=== PATIENT | male | born 1965 | race Caucasian/White ===

== ENCOUNTER 2018-12-01 21:32 | Observation (INO) | payer MEDICAID ==
--- NOTE | ~2018-12-01 | HEMODYNAMI ---
PATIENT:MADELEINE MADISON MEDICAL RECORD: [id number] : 61 LOCATION:[facility] D.2121 ADMISSION DATE: 12/01/18 Generatedon:12/02/201810:47 Patient name: MADELEINE MADISON Patient #: [id number] SSN: : 1965 Date of study: 12/02/2018 Page: Of Hemodynamic Procedure Report Patient Data Patient Demographics Procedure consent was obtained First Name: MADELEINE Gender: Male Last Name: LOS : 1965 Patient #: [id number] Age: 53 year(s) Race: Unknown Additional ID: [id number] Contact details Address: [address] [place] [address] State: [place] City: [place] Zip code: [address] Past Medical History Allergies Allergen Reaction Date Comments Reported Other allergy 12/02/2018 DILAUDID Admission Admission Data Admission Date: 12/01/2018 Admission Time: 23:04 Room #: D.2121 Height (in.): 70 BSA: 2.23 (m2) Height (cm.): 177.8 BMI: 33.53 (kg/m2) Weight (lbs.): 233.69 Weight (kg.): 106 Lab Results Lab Result Date: 12/02/2018 Lab Result Time: 0:00 Biochemistry Name Units Result Min Max BUN mg/dl 20 --(----)*- 7 18 Creatinine mg/dl 1.1 --(--*-)-- 0.6 1.3 CBC Name Units Result Min Max Hematocrit % 41 -*(----)-- 42 54 Hemoglobin g/dl 14.4 --(*---)-- 13.5 17.5 Procedure Procedure Types Cath Procedure Diagnostic Procedure [facility] w/Coron[facility] Procedure Description Procedure Date Procedure Date: 12/02/2018 Procedure Start Time: 10:38 Procedure End Time: 10:44 Procedure Staff Name Function Brendan Swain MD Performing Physician Chucky Fernández RT Monitor Yung Harris RN Nurse Sera Parker RT Scrub Procedure Data Cath Procedure Fluoroscopy Diagnostic fluoroscopy Total fluoroscopy Time: 1.6 time: 1.6 min min Diagnostic fluoroscopy Total fluoroscopy dose: 414 dose: 414 mGy mGy Contrast Material Contrast Material Type Amount (ml) Isovue 370 38 Entry Location Entry Primary Successful Side Size Upsize Upsize Entry Closure Pugh ccessful Closure Location (Fr) 1 (Fr) 2 (Fr) Remarks Device Remarks Radial Right 6 Fr Mechanical artery Short Compression Estimated blood loss: 10 ml Diagnostic catheters Device Type Used For End Catheter Placement DIAGNOSTIC [place] 110cm 5 Procedure Fr catheter ([id number]) Procedure Complications No complications Procedure Medications Medication Administration Route Dosage Oxygen etCO2 Nasal cannula 2 l/min Lidocaine 2% added to field 20 Heparin Flush Bag added to field 2 bags (1000units/500ml NS) 0.9% NaCl I.V. 100 ml/hr Radial Cocktail I.A. 1 syringe (Verapamil 2mg/Nitro 400mcg/Heparin 1500units) Versed I.V. 1 mg Fentanyl I.V. 50 mcg Versed I.V. 1 mg Fentanyl I.V. 50 mcg Hemodynamics Rest BSA: 2.23 (m2) HGB: 14.4 (g/dl) O2 Consumption: Estimated: 254.73 (ml/min) O2 Co nsumption indexed: Estimated:114.23 (ml/min/m) Heart Rate: 59 (bpm) Snapshots Pre Cath Intra NCS Post Cath Vital Signs Time Heart Resp SPO2 etCO2 NIBP (mmHg) Rhythm Pain Sedation Rate (ipm) (%) (mmHg) Status Level (bpm) 10:33:48 58 18 100 35.1 111/68(101) NSR 0 (11) 10(A) , No pain 10:38:02 62 16 97 39.6 114/63(85) NSR 0 (11) 9(A) , No pain 10:42:12 70 12 94 41.1 108/65(89) NSR 0 (11) 9(A) , No pain 10:45:25 59 14 94 40.4 106/71(102) NSR 0 (11) 10(A) , No pain Medications Time Medication Route Dose Verified Delivered Reason Notes Effectiveness by by 10:33:53 Oxygen etCO2 2 l/min Brendan Barragan used for Nasal Tauth MD Harris patient registration rep cannula 10:34:00 Lidocaine 2% added 20ml Brendankeshawn Cardona for local to vial Wiliam Swain MD anesthetic field 10:34:06 Heparin Flush added 2 bags Brendankeshawn Cardona used for Bag to Wiliam Swain MD procedure (1000units/500ml field NS) 10:34:15 0.9% NaCl I.V. 100 Brendan Royalula Per ml/hr Wiliam Harris RN physician 10:36:11 Versed I.V. 1 mg Brendan Buffie for sedation Wiliam Harris RN 10:36:17 Fentanyl I.V. 50 mcg Brendan Buffie for sedation Wiliam Harris RN 10:38:25 Radial Cocktail I.A. 1 Brendan Brendan for (Verapamil syringe Wiliam Swain MD vasodilation 2mg/Nitro 400mcg/Heparin 1500units) 10:39:37 Versed I.V. 1 mg Brendan Buffie for sedation Wiliam Harris RN 10:39:42 Fentanyl I.V. 50 mcg Brendan Pryorie for sedation Wiliam Harris RN Procedure Log Time Note 10:00:50 Chucky Fernández RT(R) sent for patient. Start room use. 10:04:51 Time tracking: Regular hours (M-F 7:00 - 5:00) 10:04:55 Plan of Care:Hemodynamics will remain stable., Cardiac rhythm will remain stable., Comfort level will be maintained., Respiratory function will remain adequate., Patient/ family verbilizes understanding of procedure., Procedure tolerated without complication., Recovers from procedure without complications.. 10:15:10 Signed procedure consent form obtained from patient. 10:19:20 Patient allergic to Other allergyDILAUDID 10:19:52 Lab Result : BUN 20 mg/dl 10:19:52 Lab Result : Creatinine 1.1 mg/dl 10:19:52 Lab Result : Hemoglobin 14.4 g/dl 10:19:52 Lab Result : Hematocrit 41 % 10:20:02 Patient Weight : 233.69 lbs 10:20:07 Patient Height : 70 inches 10:21:08 Patient received from Med II to CCL 1 Alert and oriented. Tansferred to table in Supine position. 10:21:11 Warm blankets applied, and luba hugger turned on for patient comfort. 10:21:12 Correct patient and procedure confirmed by team. 10:21:13 ECG and BP/O2 sat monitors applied to patient. 10:32:43 Vital chart was started 10:32:45 Baseline sample Acquired. 10:32:48 Rhythm: sinus rhythm 10:32:49 Full Disclosure recording started 10:33:02 H&P Date Dictated: 12/02/2018 Within 30 days and on chart.. 10:33:09 Pre-procedure instructions explained to patient. 10:33:11 Pre-op teaching completed and patient verbalized understanding. 10:33:12 Family in patients room. 10:33:14 Patient NPO since Midnight. 10:33:15 Is the patient allergic to Iodine/contrast media? No. 10:33:17 Is patient on blood thinner?Yes 10:33:19 ACC The patient was administered the following blood thiners within the last 24 hours: ACCPlavix 10:33:21 Patient diabetic? Yes. 10:33:24 If diabetic: On Metformin? Yes 10:33:32 If on Metformin: Last Dose? 12/01/2018 10:33:34 Previous problem with sedation/anesthesia? No ? 10:33:35 Snore? Yes 10:33:36 Sleep apnea? Yes 10:33:37 Deviated septum? No 10:33:38 Opens mouth fully? Yes 10:33:39 Sticks out tongue? Yes 10:33:40 Airway obstruction? No ? 10:33:42 Dentures? No ? 10:33:50 Pre procedure: right dorsailis pedis pulse 1+ Palpable, but thready & weak; easily obliterated 10:33:52 Modified Wolf's test Ulnar < 7 seconds 10:33:53 Oxygen 2 l/min etCO2 Nasal cannula was administered by Yung Harris RN; used for procedure; 10:33:54 Patient pain scale 0/10 ?. 10:34:00 Lidocaine 2% 20ml vial added to field was administered by Brendan Swain MD; for local anesthetic; 10:34:06 Heparin Flush Bag (1000units/500ml NS) 2 bags added to field was administered by Brendan Swain MD; used for procedure; 10:34:06 IV patent on arrival in right antecubital with 0.9% [facility] at [facility]. 10:34:08 Lab results completed and on chart. 10:34:10 Right Radial & Right Groin area was prepped with chlora-prep and draped in sterile fashion 10:34:11 Alarms reviewed by R. N. 10:34:12 Sharps counted by scrub and verified by R.N. 10:34:15 0.9% NaCl 100 ml/hr I.V. was administered by Yung Harris RN; Per physician; 10:34:15 Use device set Radial Dx or PCI 10:34:17 Tegaderm 4 x 4 (1626W) opened to sterile field. 10:34:17 ACIST Manifold (94367) opened to sterile field. 10:34:18 ACIST Hand Control (45766) opened to sterile field. 10:34:19 ACIST Syringe (59538) opened to sterile field. 10:34:19 Medline Cath Pack ([id number]) opened to sterile field. 10:34:20 Bag Decanter (2002S) opened to sterile field. 10:34:20 DIAGNOSTIC WIRE .035 260cm J wire (293577) opened to sterile field. 10:34:21 MBrace Wrist Support (985823916) opened to sterile field. 10:34:22 SHEATH 6FR Slender (78-1522) opened to sterile field. 10:34:29 IV Extension Set opened to sterile field. 10:35:32 --------ALL STOP TIME OUT------ 10:35:33 Final Timeout: patient, procedure, and site verified with staff and physician. All members of the team are in agreement. 10:35:35 Right Radial & Right Groin site verified by team. 10:35:38 Maximum allowable Isovue 370 dose 300ml. Physician notified. (300ml for normal creatinines. For patients with creatinine of 1.7 or higher multiply weight(kg) x 5 divided by creatinine.) 10:35:43 Fire Safety Assessment: A--An alcohol-based skin anteseptic being used preoperatively., C--Open oxygen or nitrous oxide is being used., D--An ESU, laser, or fiber-optic light is being used. 10:35:48 Physical assessment completed. ASA score P 2 - A patient with mild systemic disease as per Brendan Swain MD. 10:35:50 Sedation plan: IV Moderate Sedation Medication:Versed, Fentanyl 10:36:11 Versed 1 mg I.V. was administered by Yung Harris RN; for sedation; 10:36:17 Fentanyl 50 mcg I.V. was administered by Yung Harris RN; for sedation; 10:38:20 Local anesthetic to right radial artery with Lidocaine 2% by Brendan Swain MD.INITIAL ACCESS ONLY 10:38:25 Radial Cocktail (Verapamil 2mg/Nitro 400mcg/Heparin 1500units) 1 syringe I.A. was administered by Brendan Swain MD; for vasodilation; 10:38:28 A 6 Fr Short sheath was inserted into the Right Radial artery 10:39:08 A DIAGNOSTIC [place] 110cm 5 Fr catheter (276667) was advanced over the wire and used for Procedure. 10:39:10 LV angiography performed. 10:39:11 LV gram done using GONZALEZ 10:39:18 EF : 50 % 10:39:22 Injector settings: Ml/sec: 7, Volume: 15, 10:39:37 Versed 1 mg I.V. was administered by Yung Harris RN; for sedation; 10:39:42 Fentanyl 50 mcg I.V. was administered by Yung Harris RN; for sedation; 10:40:28 RCA angiography performed. 10:40:32 Catheter exchanged over wire. 10:41:06 GUIDE 6FR XBLAD 3.5 catheter ([id number]) opened to sterile field. 10:41:15 6 Fr XBLAD 3.5 guide catheter was inserted over the wire 10:41:36 LCA angiography performed. 10:41:50 Catheter exchanged over wire. 10:41:54 TR BAND Standard ([id number]) opened to sterile field. 10:42:30 Sheath removed intact; hemostasis achieved with Mechanical Compression to the Right Radial artery. 10:42:37 Procedure ended.(Physican Out) 10:42:48 Fluoroscopy time 01.60 minutes. 10:42:52 Fluoroscopy dose: 414 mGy 10:42:52 Flurop Dose total: 414 10:42:58 Contrast amount:Isovue 370 38ml. 10:43:00 Sharps counted by scrub and verified by R.N. 10:43:03 TR band inflated with 10cc of air. 10:43:05 Insertion/operative site no bleeding no hematoma. 10:43:07 Post Procedure Pulses reassessed and unchanged 10:43:09 Post-procedure physical assessment completed. ASA score P 2 - A patient with mild systemic disease as per Brendan Swain MD. 10:43:11 Post procedure rhythm: unchanged. 10:43:13 Estimated blood loss: 10 ml 10:43:15 Post procedure instruction explained to patient.Patient verbalizes understanding. 10:43:15 Patient needs reinforcement of post procedure teaching. 10:43:20 Procedure and supply charges have been captured, reviewed, submitted and are correct. 10:43:23 Procedure Complication : No complications 10:43:54 Vital chart was stopped 10:43:54 See physician's report for complete and final results. 10:44:00 Report given to PCU. 10:44:05 Patient transfered to PCU with Bed. 10:44:06 Procedure ended. 10:44:06 Full Disclosure recording stopped 10:44:12 End room use (Document Last) Device Usage Item Name Manufacture Quantity Catalog Hospital Part Current Minimal Lot# / Number Charge Number Stock Stock Serial# Code Tegaderm 4 3M 1 1626W [id number] 880739 093482 5 x 4 (1626W) ACIST Acist 1 19515 430988 867468 931941 5 Manifold Medical (66715) Systems Inc ACIST Hand Acist 1 20991 993662 649497 977445 5 Control Medical (58297) Systems Inc ACIST Acist 1 04550 425467 530645 784726 20 Syringe Medical (42611) Systems Inc Medline Medline 1 [id number] 682567 81309 275173 5 Cath Pack ([id number]) Bag Microtek 1 2001S 121846 10540 726634 5 Decanter Medical Inc. () DIAGNOSTIC St Karel 1 237275 820625 245139 135584 30 WIRE .035 260cm J wire (872576) MBrace Advanced 1 140-0250-00 145052 36170 326982 5 Wrist Vascular Support Dynamics ([id number]) SHEATH 6FR Terumo 1 [id number] 403702 023426 576097 5 Slender (80-1060) IV Hospira 1 198914 14320 202903 5 Extension Set DIAGNOSTIC Terumo 1 40-0127 017315 335541 770424 5 [place] 110cm 5 Fr catheter (050374) GUIDE 6FR Cardinal 1 [id number] 970151 372288 644600 10 XBLAD 3.5 Health catheter (02512932) TR BAND Terumo 1 TVE30-LAU 622773 694084 464832 40 Standard ([id number]) Signature Audit [place] Stage Time Signature Unsigned Intra-Procedure 12/02/2018 Chucky Fernández 10:47:18 AM RT(R) Signatures Monitor : Chucky Fernández RT Signature : Date : Time : [place] [id number] [place] [id number]
[2018-12-01] MEDS ORDERED: PRAVACHOL80 MG PO (21:53)
[2018-12-01] MEDS ORDERED: GEMFIBROZIL600 MG PO (21:53)
[2018-12-01] MEDS ORDERED: LISINOPRIL20 MG PO (21:53)
[2018-12-01] MEDS ORDERED: NOVOLOG100 UNIT/1 (21:54)
[2018-12-01] MEDS ORDERED: ASPIRIN81 MG (21:54)
[2018-12-01] MEDS ORDERED: LEVEMIR FL100 UNIT/1 (21:54)
[2018-12-01] MEDS ORDERED: COREG6.25 MG PO (21:54)
[2018-12-01 22:04] LABS: BASOPHILS 0.4 % (0-2); EOSINOPHILS 1.8 % (0-7); HEMOGLOBIN 14.4 g/dL (13.5-17.5); IMMATURE GRANULOCYTES 0.2 % (0-5); LYMPHOCYTES 33.2 % (15-50); MCH 28.5 pg (26.0-34.0); MCHC 35.1 g/dL (31.0-37.0); MEAN PLATELET VOLUME 9.4 fL (7.4-10.4); MONOCYTES 6.7 % (2-11); NEUTROPHILS 57.7 % (40-80); PLATELET COUNT 240 10x3/uL (130-400); RBC 5.06 10x6/uL (4.20-6.10); RDW 13.6 % (11.5-14.5); WBC 8.3 10x3/uL (4.8-10.8)
[2018-12-01 22:12] LABS: APTT 29.2 SECONDS (22.8-39.4); PROTIME 12.7 SECONDS (11.6-15.0)
[2018-12-01 22:16] LABS: ALBUMIN 4.1 g/dL (3.4-5.0); ALKALINE PHOSPHATASE 59 U/L (46-116); ALT (SGPT) 27 U/L (10-68); BILIRUBIN - TOTAL 0.38 mg/dL (0.2-1.3); CALC OSMOLALITY 281 mosm/kg (275-300); CARBON DIOXIDE 27.5 mmol/L (21.0-32.0); CHLORIDE - SERUM 102 mmol/L (98-107); CREATININE - SERUM 1.1 mg/dL (0.6-1.3); GLUCOSE 147 mg/dL (74-106); PROTEIN - SERUM 7.8 g/dL (6.4-8.2); SODIUM 138 mmol/L (136-145); UREA NITROGEN 20 mg/dL (7-18); eGFR NON AFRICAN AMERICAN 74 mL/min (90-120)
[2018-12-01 22:27] LABS: CKMB 1.4 U/L (0.0-3.6); CREATINE KINASE 219 UL (21-232); MAGNESIUM - SERUM 2.1 mg/dL (1.8-2.4)
[2018-12-01 22:35] VITALS: BP 148/86
[2018-12-01] MEDS ORDERED: GLUCOPHAGE1000 MG PO (23:38)
--- NOTE | 2018-12-01 23:53 | NUR ---
RECEIVED FROM ER VIA WHEELCHAIR, A&O, PLACED ON [id number]. EXPLAINED HE WILL BE NPO, BED IS LOW, SRX1, CALL LIGHT IN REACH, WILL CONTINUE PLAN OF CARE
[2018-12-02 03:06] VITALS: BP 148/86; BMI 33.5
--- NOTE | 2018-12-02 03:12 | NUR ---
ADMISSION ASSESSMENT COMPLETED AT THIS TIME. SR PER TELEMETRY. RESTING IN BED WITH NO DISTRESS. MONITOR AND IMPLEMENT PLAN OF CARE.
[2018-12-02 03:28] LABS: CKMB 1.7 U/L (0.0-3.6); CREATINE KINASE 179 UL (21-232); TROPONIN-I 0.053 ng/mL (0.000-0.060)
[2018-12-02 05:38] VITALS: BP 111/65
[2018-12-02 08:18] LABS: CKMB 0.9 U/L (0.0-3.6); CREATINE KINASE 156 UL (21-232); TROPONIN-I 0.055 ng/mL (0.000-0.060)
[2018-12-02 08:45] VITALS: BP 106/66
[2018-12-02 08:51] VITALS: BP 106/66
--- NOTE | 2018-12-02 09:31 | NUR ---
CONSENTS SIGNED FOR [facility]. WILL CONT. PLAN OF CARE.
--- NOTE | 2018-12-02 10:15 | NUR ---
PRE-OPS GIVEN. TO HAND PICKER BY BED.
--- NOTE | 2018-12-02 11:03 | NUR ---
BACK FROM [facility]. VS WNL. RIGHT WRIST STABLE WITH TR BAND INTACT. WILL MONITOR.
[2018-12-02 12:07] VITALS: BP 109/68
--- NOTE | 2018-12-02 13:24 | NUR ---
TR BAND DCD WITHOUT BLEEDING OR HEMATOMA NOTED. WILL MONITOR.
--- NOTE | 2018-12-02 13:41 | NUR ---
IV AND TELEMETRY DCD. DC PLANS GIVEN. UNDERSTANDING VOICED. ESCORTED TO CAR BY W/C.
--- NOTE | 2018-12-03 08:36 | MORECARE ---
CASE MANAGEMENT DISCHARGE SUMMARY PATIENT: MADELEINE MADISON UNIT: [id number] ADM DATE: 12/01/18 AGE: 53 : 61 SEX: M ROOM/BED: D.2121 AUTHOR: DAVID BANEGAS PHYSICIAN: REFERRING PHYSICIAN: JAMIE LARIOS MD DATE OF SERVICE: 12/03/18 Discharge Plan Patient Name: [facility]ADELEINE MADISON [facility] [facility] 1965 Planned Disposition: Home Anticipated Discharge Date: 12/02/18 Discharge Date: 12/02/2018 Expected LOS: 1 Initial Reviewer: [email or web address] Initial Review Date: 12/03/2018 Generated: 12/03/18 9:35 am Patient Name: MADELEINE MADISON Page [id number] at 0836 All edits/amendments must be made on the electronic document DICTATION DATE: 12/03/1835 MANAGER BALANCE: KASHIF 12/03/1835 RPT#: [id number] DC DATE:12/02/18 STATUS: DIS IN [facility] [address] [facility] [place] [address] END OF REPORT
--- NOTE | 2018-12-05 11:19 | OP ---
PATIENT NAME: MADELEINE MADISON MEDICAL RECORD: [id number] :[birth year] LOCATION:D.M2 D.2121 ADMISSION DATE:12/01/18 SURGEON: JAMIE LARIOS MD DATE OF OPERATION: 12/02/2018 PROCEDURES: 1. Left heart catheterization. 2. Selective coronary angiography. 3. Left ventriculogram. INDICATION: Unstable angina with multiple cardiac risk factors. PROCEDURE IN DETAIL: After informed consent was obtained and after detailed explanation of risks, benefits as well as alternative therapies, the patient elected to proceed with angiogram and heart catheterization. The right radial area was prepped and draped in normal sterile fashion. Right radial artery was cannulated via modified Seldinger technique with placement of 5-Nauruan sheath. All catheters exchanged through this sheath. FINDINGS: Left ventriculogram was performed in standard 30-degree GONZALEZ view, reveals good cardiac wall motion throughout all segments. Overall ejection fraction estimated at 55% to 60%. SELECTIVE CORONARY ANGIOGRAPHY: Left main, left anterior descending, left circumflex, right coronary artery are all smooth-walled vessels. No angiographic evidence of coronary artery disease. OVERALL IMPRESSION: 1. No angiographic evidence of coronary artery disease. 2. Normal left heart pressures. 3. Normal left ventricular systolic function. TRANSINT:[id number] Voice Confirmation ID: [id number] DOCUMENT ID: [id number] JAMIE LARIOS MD at 1119 CC: [id number] DICTATION DATE: 12/02/18 1050 TRANSPORTATION AID: 12/02/18 1421 DIS IN 12/02/18 [place] [id number] [place] [address]
--- NOTE | 2018-12-05 11:19 | DS ---
PATIENT:MADELEINE MADISON :[birth year] MEDICAL RECORD: [id number] DISCHARGE SUMMARY ADMISSION DATE: 12/01/18 DISCHARGE DATE: 12/02/18 DATE OF DISCHARGE: 12/02/2018. DIAGNOSES: 1. Chest pain compatible with unstable angina. 2. Hypertension. 3. Hyperlipidemia. 4. Diabetes. HOSPITAL COURSE: This is a gentleman who presents with escalating chest pain; however, cardiac catheterization was normal. Discharged home with GI directed medication and follow up with primary care physician. TRANSINT:[id number] Voice Confirmation ID: [id number] DOCUMENT ID: [id number] JAMIE LARIOS MD at 1119 CC: [id number] DICTATION DATE: 12/02/18 1048 HEALTH CARE RECRUITER: 12/02/182125 DIS IN 12/02/18 [facility] [address] [place] [address]
--- NOTE | 2018-12-05 11:19 | HP ---
PATIENT: MADELEINE BOJORQUEZ MEDICAL RECORD: [id number] ACCOUNT: [id number] LOCATION:[address] : [birth year] ADMISSION DATE: 12/01/18 PCP: ALMA GARDUNO HISTORY AND PHYSICAL EXAMINATION DIAGNOSES: 1. Unstable angina. 2. Coronary artery disease. 3. Insulin-dependent diabetes. 4. Hypertension. 5. Hyperlipidemia. HISTORY OF PRESENT ILLNESS: Mr. Bojorquez presents with 3 months of increasing chest pain, increasing dramatically over the past 24 hours. His troponin is borderline at 0.55. He does continue to have chest pressure this morning. His chest pressure came on him yesterday with minimal exertion despite optimal heart rate and blood pressure control. He continues to have pain. He had a cardiac catheterization approximately 7-8 years ago. At that time, he was told by Dr. Lowe at [facility] that he had a weak heart muscle and coronary artery disease, but not to the point where it needed intervention at that time. He has not had further cardiac workup. His EKG is with no acute changes. PHYSICAL EXAMINATION: GENERAL APPEARANCE: Well-nourished, well-developed, appears stated age. Level of distress, comfortable. PSYCHIATRIC: Mental status, alert, normal affect. Orientation, oriented to time, place and person. EYES: Lids and conjunctiva, noninjected. No discharge, no pallor. ENT: Lips, teeth, gums, normal dentition. Oropharynx, no cyanosis, no pallor. NECK: Carotid arteries, bilateral normal upstroke, no bruits, no thrills. JUGULAR VEINS: No jugular venous pressure or distention. CERVICAL LYMPH NODES: Nontender, nonenlarged. THYROID: Not enlarged. Nontender. No nodules. LUNGS: Respiratory effort, unlabored. CHEST: Normal curvature. No thoracic deformity. No chest wall tenderness. Percussion, resonant. Auscultation, clear. No wheezes, no rales, no rhonchi. CARDIOVASCULAR: Precordial exam, nondisplaced. No heaves or pericardial thrills. Rate and rhythm, regular. Heart sounds, normal S1, normal S2. No S3, no gallop, no rub. Systolic murmur, not heard. Diastolic murmur, not heard. EXTREMITIES: No cyanosis, no edema. Peripheral pulses, full and equal in all extremities, except as noted. No bruits appreciated. ABDOMEN: Soft, nondistended. Normal aorta. No bruit. Nontender. No masses. Liver, nontender, no hepatomegaly. Spleen, nontender, no splenomegaly. MUSCULOSKELETAL: No joint tenderness. No joint swelling. No erythema. NEUROLOGICAL: Normal gait, normal strength, normal tone. SKIN: Warm and dry. OVERALL IMPRESSION: Unstable angina in an escalating fashion in a patient with a past history of coronary artery disease many years ago, cardiomyopathy, insulin-dependent diabetes and continued chest pain despite maximal medical therapy with optimal heart rate and blood pressure control. At this time stress testing would be inappropriate due to his continued symptomatology and his unstable anginal picture. We will proceed with coronary angiography. TRANSINT:[id number] Voice Confirmation ID: [id number] DOCUMENT ID: [id number] HISTORY AND PHYSICAL [id number] MADELEINE BOJORQUEZ JEFFREY MD at 1119 CC: [id number] DICTATION DATE: 12/02/18918 MATERIALS ASSISTANT: 12/02/18 1258 DIS IN 12/02/18 [place] [id number] [place] [address]
== END 2018-12-02 13:41 | disposition home or self-care (01) ==
LOC: D.ER 21:32 → OBSVTIME 23:04 → D.M2 23:04
PROVIDERS: Emergency Medicine; ADMIT Internal Medicine Interventional Cardiology; ATTEND Internal Medicine Interventional Cardiology
DX: I25.110 Atherosclerotic heart disease of native coronary artery with unstable angina pectoris (principal); I10 Essential (primary) hypertension; E78.5 Hyperlipidemia, unspecified; E11.9 Type 2 diabetes mellitus without complications; I42.9 Cardiomyopathy, unspecified